=== PATIENT | female | born 1995 | race Caucasian/White ===

== ENCOUNTER 2016-03-28 13:52 | Emergency (ER) | payer SELFPAY ==
[2016-03-28] MEDS ORDERED: ACETAMINOPHEN 325 MG TABLET PO ONE (13:56)
[2016-03-28] MEDS ORDERED: ONDANSETRON 4 MG TAB.RAPDIS PO ONE (13:56)
--- NOTE | 2016-03-28 13:56 | ER Document Report ---
ED Medical Screen (RME) - General Stated Complaint: HEAD INJURY Mode of Arrival: Ambulatory Information source: Patient Notes: He should states she was trying to avoid hitting her head on something and instead hit her head on a cooler door. Patient complains of nausea. No loss of consciousness. Patient complains of increased fatigue hx: Dyslipidemia I have greeted and performed a rapid initial assessment of this patient. A comprehensive ED assessment and evaluation of the patient, analysis of test results and completion of the medical decision making process will be conducted by additional ED providers. TRAVEL OUTSIDE OF THE [place] IN LAST 30 DAYS: No - Related Data Allergies/Adverse Reactions: amoxicillin [Amoxicillin] Allergy (Verified 11/21/13 11:32) amoxicillin trihydrate [From Augmentin] Allergy (Verified 11/21/13 11:32) cefaclor [From Ceclor] Allergy (Verified 11/21/13 11:32) Penicillins Allergy (Verified 11/21/13 11:32) Potassium Clavulanate * [From Augmentin] Allergy (Verified 11/21/13 11:32) Past Medical History Renal/ Medical History: Reports: Hx Kidney Stones Past Surgical History: Reports: Hx Myringotomy - Immunizations Immunizations up to date: Yes Hx Diphtheria, Pertussis, Tetanus Vaccination: Yes Physical Exam - Neurological Neuro grossly intact: Yes Orientation: AAOx4 [place] Coma Scale Eye Opening: Spontaneous [place] Coma Scale Verbal: Oriented [place] Coma Scale Motor: Obeys Commands [place] Coma Scale Total: 15
--- NOTE | 2016-03-28 14:56 | ER Document Report ---
ED Head/Face/Scalp Injury - General Chief Complaint: Head Injury without LOC Stated Complaint: HEAD INJURY Time seen by provider: 14:40 Mode of Arrival: Ambulatory Information source: Patient, [facility] Records Notes: This 21-year-old female patient comes emergency room on the insistence of her employer for evaluation of a head injury suffered about 12:30 PM today. 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 She reports she was dodging some ice buckets when she struck her right forehead on metal door that was open. She is not sure if she hit the edge of the door or the flat portion of the door. She was not down but was not unconscious. She complains of trouble staying awake, nauseousness and fatigue. She does have a throbbing right frontal headache. TRAVEL OUTSIDE OF THE [place] IN LAST 30 DAYS: No - Related Data Allergies/Adverse Reactions: amoxicillin [Amoxicillin] Allergy (Verified 03/28/16 13:55) amoxicillin trihydrate [From Augmentin] Allergy (Verified 03/28/16 13:55) cefaclor [From Ceclor] Allergy (Verified 03/28/16 13:55) Penicillins Allergy (Verified 03/28/16 13:55) Potassium Clavulanate * [From Augmentin] Allergy (Verified 03/28/16 13:55) Past Medical History - General Information source: Patient, [facility] Records - Social History Smoking Status: Current Every Day Smoker Cigarette use (# per day): Yes Chew tobacco use (# tins/day): No Smoking Education Provided: No Frequency of alcohol use: Occasional Drug Abuse: None Occupation: fire apparatus engineer Lives with: Family Family History: Arthritis, DM, Hyperlipidemia, Hypertension, Malignancy Patient has suicidal ideation: No Patient has homicidal ideation: No - Past Medical History Cardiac Medical History: Reports: Hx Hypercholesterolemia - No treatment, has not been checked recently. Was elevated in the past. Pulmonary Medical History: Reports: None EENT Medical History: Reports: None Neurological Medical History: Reports: None Endocrine Medical History: Reports: None Renal/ Medical History: Reports: Hx Kidney Stones GI Medical History: Reports: None Musculoskeltal Medical History: Reports None Skin Medical History: Reports None Psychiatric Medical History: Reports: None Past Surgical History: Reports: Hx Myringotomy - Immunizations Immunizations up to date: Yes Hx Diphtheria, Pertussis, Tetanus Vaccination: Yes Review of Systems - Review of Systems Constitutional: See HPI EENT: See HPI Cardiovascular: No symptoms reported Respiratory: No symptoms reported Gastrointestinal: No symptoms reported Genitourinary: No symptoms reported Female Genitourinary: See HPI - 03/23/2016 Musculoskeletal: No symptoms reported Skin: No symptoms reported Hematologic/Lymphatic: No symptoms reported Neurological/Psychological: No symptoms reported Physical Exam - Vital signs Vitals: Temp Pulse Resp BP Pulse Ox 98.0 F 101 H 16 144/100 H 100 03/28/16 13:55 03/28/16 13:55 03/28/16 13:55 03/28/16 13:55 03/28/16 13:55 Interpretation: Normal - HEENT Head: Normocephalic, Ecchymosis - Right forehead has a tender swollen ecchymotic region about 3 x 4 cm Eyes: Normal Pupils: PERRL Neck: Normal - Respiratory Respiratory status: No respiratory distress - Cardiovascular Rhythm: Regular - Abdominal Inspection: Normal - Back Back: Normal - Extremities General upper extremity: Normal inspection General lower extremity: Normal inspection - Neurological Neuro grossly intact: Yes - Psychological Associated symptoms: Normal affect, Normal mood - Skin Skin Temperature: Warm Skin Moisture: Dry Skin Color: Normal Course - Vital Signs Vital signs: Temp Pulse Resp BP Pulse Ox 98.0 F 101 H 16 144/100 H 100 03/28/16 13:55 03/28/16 13:55 03/28/16 13:55 03/28/16 13:55 03/28/16 13:55 - Diagnostic Test Radiology reviewed: Image reviewed, Reports reviewed - CT scan of the head is unremarkable. Discharge - Discharge Clinical Impression: Contusion of forehead Qualifiers: Encounter type: initial encounter Qualified Code(s): S00.83XA - Contusion of other part of head, initial encounter Condition: Stable Disposition: HOME, SELF-CARE Additional Instructions: Contusion: Your injury has resulted in a contusion -- a crushing of the deep tissues. No injury to important structures was detected during the physician's exam. Contusions vary in the amount of pain they cause, and in the length of time required for healing. Typically, the area will become bruised, and will remain painful to touch for two or three weeks. However, most patients are back to working and playing within a few days. After the initial period of rest and cold-packs, your symptoms (together with the doctor's recommendations) will determine how rapidly you can get back to full activity. Usually this means "do what feels okay, but don't do things that hurt." If re-examination was recommended, it's important to follow up as instructed. Call the doctor or return any time if pain increases, if swelling becomes severe, if you develop numbness or weakness in an injured extremity, or if any other alarming symptoms occur. Head Injury Precautions: At this point, there is no evidence that your head injury is serious. Observation is necessary, however. Take only clear liquids for the first few hours, unless told otherwise by the doctor. If no pain medication was prescribed, you may take acetaminophen according to the directions on the bottle. Do not take any medication that may alter your level of alertness (unless you've discussed it with the doctor first) . Limit activity for the first 24 hours. Bed rest is best. During the first 24 hours, check to see approximately every two to three hours that the patient is easily arousable, responds normally, and can perform common tasks such as walking without difficulty. Contact your doctor or go to the hospital if any of the following things occur: Persistent vomiting, difficulty in arousing the patient, worsening or continued headache, or failure to improve as expected. Head injuries can cause symptoms that persist for a few days or even a few weeks. USE ICE-PACKS TODAY TO REDUCE SWELLING. TAKE THE PAIN MEDICATION DISPENSED IF NEEDED. REST TODAY. FOLLOW UP WITH A LOCAL MEDICAL DOCTOR IF NOT IMPROVING. RETURN TO THE EMERGENCY ROOM IF ANY NEW OR WORSENING SYMPTOMS. Forms: Return to Work
[2016-03-28] MEDS ORDERED: HYDROCODONE/ACETAMINOPHEN 5-325 MG 6 TAB/DSPK PO PRN (15:48)
[2016-03-28 16:20] VITALS: BP 120/56
== END 2016-03-28 16:18 | disposition home or self-care (01) ==
LOC: ER 13:52
DX: S00.83XA Contusion of other part of head, initial encounter (principal); F17.210 Nicotine dependence, cigarettes, uncomplicated; W22.09XA Striking against other stationary object, initial encounter; Y92.511 Restaurant or cafe as the place of occurrence of the external cause; Y99.0 Civilian activity done for income or pay; Z88.0 Allergy status to penicillin; Z87.442 Personal history of urinary calculi
CPT/HCPCS: 99283; 70450; S0119

== ENCOUNTER 2018-03-08 19:54 | Emergency (ER) | payer MEDICAID ==
--- NOTE | 2018-03-08 20:38 | ER Document Report ---
ED Medical Screen (RME) - General Chief Complaint: Flank Pain Stated Complaint: FLANK PAIN Time Seen by Provider: 03/08/18 20:35 TRAVEL OUTSIDE OF THE [place] IN LAST 30 DAYS: No - HPI Patient complains to provider of: Right flank pain, fever Onset: This afternoon Notes: 03/08/18 20:37 Patient is a 23-year-old female who is approximately 21 weeks , presenting to the emergency room complaining of right-sided flank pain that started earlier this afternoon, she had a fever at home but is noted to be afebrile in the triage area, she denies any fluid leakage, no vaginal bleeding, no discharge, she is been followed by [employer] and has had an full thus far RAPID MEDICAL EVALUATION DISCLOSURE I have seen this patient as part of a Rapid Medical Evaluation and, if applicable, placed any initially appropriate orders. The patient will be seen and fully evaluated, including a full history and physical exam, by a provider (in Main ED or Fast Track) when a room becomes available. - Related Data Allergies/Adverse Reactions: amoxicillin [Amoxicillin] Allergy (Verified 03/08/18 20:28) amoxicillin trihydrate [From Augmentin] Allergy (Verified 03/08/18 20:28) cefaclor [From Ceclor] Allergy (Verified 03/08/18 20:28) Penicillins Allergy (Verified 03/08/18 20:28) Potassium Clavulanate * [From Augmentin] Allergy (Verified 03/08/18 20:28) Past Medical History - Past Medical History Cardiac Medical History: Reports: Hx Hypercholesterolemia - No treatment, has not been checked recently. Was elevated in the past. Renal/ Medical History: Reports: Hx Kidney Stones. Denies: Hx Peritoneal Dialysis Past Surgical History: Reports: Hx Myringotomy - Immunizations Immunizations up to date: Yes Hx Diphtheria, Pertussis, Tetanus Vaccination: Yes Physical Exam - Vital signs Vitals: Temp Pulse Resp BP Pulse Ox 98.5 F 117 H 18 135/66 H 100 03/08/18 20:17 03/08/18 20:17 03/08/18 20:17 03/08/18 20:17 03/08/18 20:17 Course - Vital Signs Vital signs: Temp Pulse Resp BP Pulse Ox 98.5 F 117 H 18 135/66 H 100 03/08/18 20:17 03/08/18 20:17 03/08/18 20:17 03/08/18 20:17 03/08/18 20:17
[2018-03-08 21:24] LABS: ABSOLUTE EOSINOPHILS # (AUTO) 0.1 10^3/uL (0.0-0.6); ABSOLUTE LYMPHOCYTES (AUTO) 1.1 10^3/uL (0.5-4.7); ABSOLUTE MONOCYTES (AUTO) 0.9 10^3/uL (0.1-1.4); BASOPHILS % (AUTO) 0.2 % (0-2); HEMATOCRIT 29.5 % (36.0-47.0); HEMOGLOBIN 10.1 g/dL (12.0-15.5); LYMPHOCYTES % (AUTO) 8.1 % (13-45); MEAN CORPUSCULAR HEMOGLOBIN 31.1 pg (27.0-33.4); MEAN CORPUSCULAR HGB CONC 34.2 g/dL (32.0-36.0); MEAN CORPUSCULAR VOLUME 91 fl (80-97); MONOCYTES % (AUTO) 7.1 % (3-13); PLATELET COUNT 353 10^3/uL (150-450); RED BLOOD COUNT 3.24 10^6/uL (3.72-5.28); RED CELL DISTRIBUTION WIDTH 13.5 % (11.5-14.0); SEGMENTED NEUTROPHILS % (AUTO) 83.6 % (42-78); TOTAL CELLS COUNTED % (AUTO) 100 %; WHITE BLOOD COUNT 13.1 10^3/uL (4.0-10.5)
[2018-03-08 21:26] LABS: APPEARANCE,URINE SLIGHTLY-CLOUDY; BILIRUBIN,URINE NEGATIVE (NEGATIVE); COLOR,URINE YELLOW; GLUCOSE, URINE NEGATIVE (NEGATIVE); KETONES,URINE NEGATIVE (NEGATIVE); LEUKOCYTE ESTERASE,URINE NEGATIVE (NEGATIVE); NITRITE,URINE NEGATIVE (NEGATIVE); PROTEIN,URINE NEGATIVE (NEGATIVE); URINE SPECIFIC GRAVITY 1.017; UROBILINOGEN,URINE NEGATIVE mg/dL (<2.0)
[2018-03-08 21:40] LABS: ALANINE AMINOTRANSFERASE 26 U/L (9-52); ALBUMIN 3.6 g/dL (3.5-5.0); ALKALINE PHOSPHATASE 83 U/L (38-126); ANION GAP 10 (5-19); ASPARTATE AMINO TRANSFERASE 28 U/L (14-36); BILIRUBIN,DIRECT 0.2 mg/dL (0.0-0.4); BILIRUBIN,TOTAL 0.2 mg/dL (0.2-1.3); BLOOD UREA NITROGEN 8 mg/dL (7-20); CALCIUM 8.9 mg/dL (8.4-10.2); CARBON DIOXIDE 26 mmol/L (22-30); CHLORIDE 102 mmol/L (98-107); GLUCOSE 80 mg/dL (75-110); LIPASE 81.4 U/L (23-300); POTASSIUM 3.7 mmol/L (3.6-5.0); SODIUM 137.7 mmol/L (137-145); TOTAL PROTEIN 6.5 g/dL (6.3-8.2)
--- NOTE | 2018-03-08 22:13 | ER Document Report ---
ED GI/ - General Chief Complaint: Flank Pain Stated Complaint: FLANK PAIN Time Seen by Provider: 03/08/18 22:13 Mode of Arrival: Ambulatory Information source: Patient Notes: HISTORY OF PRESENT ILLNESS: Patient is a 23-year-old female, at 21 weeks, with no significant past medical history who presents with right-sided flank pain. Location: Right flank Onset: Suddenly earlier today Alleviation: None Provocation: Movement, twisting Quality: Aching Radiation: Right lower back Severity: Mild to moderate Timing: Intermittent History of abdominal surgery: No Associated symptoms: Slight nausea but no vomiting, denies vaginal bleeding or discharge Last bowel movement: Today and normal Last menstrual period: Currently 21 weeks REVIEW OF SYSTEMS: CONSTITUTIONAL : Denies fever or chills, no sweats. Denies recent illness. EENT: Denies eye, ear, throat, or mouth pain or symptoms. Denies nasal or sinus congestion. CARDIOVASCULAR: Denies chest pain. Denies swelling of the legs. RESPIRATORY: Denies cough, cold, or chest congestion. Denies shortness of breath or difficulty breathing. Denies wheezing. GASTROINTESTINAL: Positive for flank pain. Positive for nausea but denies vomiting or diarrhea. Denies constipation. GENITOURINARY: Denies difficulty urinating, painful urination, burning, frequency, or blood in urine. FEMALE GENITOURINARY: Denies vaginal bleeding or discharge. MUSCULOSKELETAL: Denies neck or back pain or joint pain or swelling. SKIN: Denies rash or skin lesions. HEMATOLOGIC : Denies easy bruising or bleeding. LYMPHATIC: Denies swollen, enlarged glands. NEUROLOGICAL: Denies altered mental status or loss of consciousness. Denies headache. Denies weakness or paralysis or loss of use of either side. Denies problems with gait or speech. Denies sensory or motor loss. PSYCHIATRIC: Denies anxiety or stress or depression. All other systems reviewed and negative. PHYSICAL EXAMINATION: GENERAL: Well-appearing, well-nourished and in no acute distress. HEAD: Atraumatic, normocephalic. No scalp deformity, depression, or crepitance. EYES: Pupils are 3 mm and equal/round/reactive to light, extraocular movements intact, sclera anicteric, conjunctiva are normal. ENT: Nares patent bilaterally, oropharynx. Moist mucous membranes. No tonsil hypertrophy. NECK: Normal range of motion, supple without lymphadenopathy. LUNGS: Breath sounds present, equal, and clear to auscultation bilaterally. No wheezes, rales, or rhonchi. HEART: Regular rate and rhythm without murmurs, rubs, or gallops. 2+ peripheral pulses. Normal capillary refill. ABDOMEN: Gravid abdomen that is soft and nontender, no distention. No CVA tenderness. Normoactive bowel sounds. No guarding, no rebound. No masses appreciated. BACK: Normal contour, no midline tenderness. Rectal exam deferred. GENITAL/PELVIC: Deferred. EXTREMITIES: Normal range of motion, no pitting or edema. No cyanosis. NEUROLOGICAL: No focal neurological deficits. Moves all extremities spontaneously and on command. PSYCH: Normal mood, normal affect. No suicidal thoughts/ideations. No homocidal thoughts/ideations. No hallucinations. SKIN: Warm, dry, normal turgor, no rashes or lesions noted. ASSESSMENT AND PLAN: This patient is a 23-year-old female at 21 weeks who presents with right flank pain. Patient has never had symptoms before like this. Urine and blood work are normal making pyelonephritis, UTI, and ureteral stone unlikely. Most likely etiology is round ligament pain given patient is a primigravid female. 1. Will discharge home with return precautions and follow-up with her [employer] as scheduled. 2. Both the patient and her fianc at bedside voiced understanding and agreeing with the plan. TRAVEL OUTSIDE OF THE [place] IN LAST 30 DAYS: No - Related Data Allergies/Adverse Reactions: amoxicillin [Amoxicillin] Allergy (Verified 03/08/18 20:28) amoxicillin trihydrate [From Augmentin] Allergy (Verified 03/08/18 20:28) cefaclor [From Ceclor] Allergy (Verified 03/08/18 20:28) Penicillins Allergy (Verified 03/08/18 20:28) Potassium Clavulanate * [From Augmentin] Allergy (Verified 03/08/18 20:28) Past Medical History - General Information source: Patient - Social History Smoking Status: Former Smoker Chew tobacco use (# tins/day): No Frequency of alcohol use: None Drug Abuse: None Lives with: Family Family History: Arthritis, DM, Hyperlipidemia, Hypertension, Malignancy Patient has suicidal ideation: No Patient has homicidal ideation: No - Past Medical History Cardiac Medical History: Reports: Hx Hypercholesterolemia - No treatment, has not been checked recently. Was elevated in the past. Pulmonary Medical History: Reports: None EENT Medical History: Reports: None Neurological Medical History: Reports: None Endocrine Medical History: Reports: None Renal/ Medical History: Reports: Hx Kidney Stones. Denies: Hx Peritoneal Dialysis GI Medical History: Reports: None Musculoskeletal Medical History: Reports None Skin Medical History: Reports None Psychiatric Medical History: Reports: None Traumatic Medical History: Reports: None Infectious Medical History: Reports: None Surgical Hx: Negative Past Surgical History: Reports: Hx Myringotomy - Immunizations Immunizations up to date: Yes Hx Diphtheria, Pertussis, Tetanus Vaccination: Yes Physical Exam - Vital signs Vitals: Temp Pulse Resp BP Pulse Ox 98.5 F 117 H 18 135/66 H 100 03/08/18 20:17 03/08/18 20:17 03/08/18 20:17 03/08/18 20:17 03/08/18 20:17 Course - Vital Signs Vital signs: Temp Pulse Resp BP Pulse Ox 98.5 F 117 H 18 135/66 H 100 03/08/18 20:17 03/08/18 20:17 03/08/18 20:17 03/08/18 20:17 03/08/18 20:17 - Laboratory Result Diagrams: 03/08/18 20:45 03/08/18 20:45 Laboratory results interpreted by me: 03/08/18 03/08/18 03/08/18 20:45 20:45 20:45 WBC 13.1 H RBC 3.24 L Hgb 10.1 L Hct 29.5 L Seg Neutrophils % 83.6 H Lymphocytes % 8.1 L Absolute Neutrophils 11.0 H Creatinine 0.49 L Urine HCG, Qual POSITIVE H Discharge - Discharge Clinical Impression: Abdominal pain affecting Condition: Good Disposition: HOME, SELF-CARE Instructions: Pelvic Pain in and Round Ligament Pain ([facility]) Additional Instructions: You have been evaluated in the Emergency Department for back and lower right pelvic pain that is most likely related to stretching of the uterus during . Please follow-up with your [employer] as instructed. Return to the Emergency Department if you experience worsening pain, vaginal bleeding/discharge, or any other concerning symptoms. Forms: Parent Work Note, Return to Work Print Language: Citizen Of [place]
[2018-03-08 23:48] VITALS: BP 127/71
== END 2018-03-08 23:53 | disposition home or self-care (01) ==
LOC: ER 19:54
DX: O26.892 Other specified pregnancy related conditions, second trimester (principal); R10.9 Unspecified abdominal pain; R11.0 Nausea; Z3A.21 21 weeks gestation of pregnancy; Z87.891 Personal history of nicotine dependence
CPT/HCPCS: 36415; 80053; 81001; 81025; 83690; 85025; 87086; 99284

== ENCOUNTER 2018-05-04 20:02 | Outpatient (CLI) | payer MEDICAID ==
[2018-05-04 20:52] LABS: APPEARANCE,URINE SLIGHTLY-CLOUDY; BILIRUBIN,URINE NEGATIVE (NEGATIVE); COLOR,URINE YELLOW; GLUCOSE, URINE NEGATIVE (NEGATIVE); KETONES,URINE NEGATIVE (NEGATIVE); LEUKOCYTE ESTERASE,URINE TRACE (NEGATIVE); NITRITE,URINE NEGATIVE (NEGATIVE); PROTEIN,URINE 30 mg/dL (NEGATIVE); URINE SPECIFIC GRAVITY 1.015; UROBILINOGEN,URINE NEGATIVE mg/dL (<2.0)
[2018-05-04 21:07] LABS: URINE AMPHETAMINES SCREEN NEGATIVE; URINE BARBITURATES SCREEN NEGATIVE; URINE BENZODIAZEPINES SCREEN NEGATIVE; URINE COCAINE SCREEN NEGATIVE; URINE MARIJUANA (THC) SCREEN NEGATIVE; URINE METHADONE SCREEN NEGATIVE; URINE PHENCYCLIDINE SCREEN NEGATIVE
[2018-05-04] MEDS ORDERED: HYDROXYZINE PAMOATE 25 MG CAPSULE PO ONE (21:10)
[2018-05-04] MEDS ORDERED: HYDROXYZINE PAMOATE 50 MG CAPSULE ONE (21:10)
[2018-05-04] MEDS ORDERED: RINGERS SOLUTION,LACTATED 1,000 ML IV PRN (21:14)
[2018-05-04] MEDS ORDERED: HYDROXYZINE PAMOATE 50 MG CAPSULE PO ONE (21:16)
--- NOTE | 2018-05-05 01:09 | RADIOLOGY REPORT (SQ) ---
EXAM DESCRIPTION: US LIMITED COMPLETED DATE/TME: 05/04/2018 00:00 CLINICAL HISTORY: 23 years, Female, Cervical length COMPARISON: None. TECHNIQUE: LIMITATIONS: None. FINDINGS: A limited ultrasound was performed to evaluate the cervical length. The cervix measures 3.2 cm in length and is closed. There is a live IUP in vertex presentation. cardiac activity was measured at 145 bpm. There is dilatation of the lateral ventricles, one measuring 20 mm in diameter and the other measuring 18 mm in diameter. The skull may be somewhat lemon shaped, a finding that can be seen with a Chiari II malformation, as well as other conditions. There may also be a nuchal umbilical cord. There is a normal amount of amniotic fluid. The placenta is posterior in location, with no evidence of abruption or previa. IMPRESSION: Findings raising the possibility of a Chiari II malformation. Possible nuchal umbilical cord. copyright 2010 [facility]- All Rights Reserved
== END 2018-05-05 01:07 | disposition home or self-care (01) ==
LOC: LC 20:02
PROVIDERS: ATTEND Obstetrics & Gynecology
PROC: 4A1HXCZ Monitoring of Products of Conception, Cardiac Rate, External Approach (ICD-10-PCS; principal; 2018-05-04)
DX: O47.03 False labor before 37 completed weeks of gestation, third trimester (principal); Z3A.29 29 weeks gestation of pregnancy
CPT/HCPCS: 81001; 80307; 76815; 59899; J3490

== ENCOUNTER 2018-05-06 14:57 | Outpatient (CLI) | payer MEDICAID | END 2018-05-06 16:15 | disposition home or self-care (01) | LOC: LC 14:57 | PROVIDERS: ATTEND Obstetrics & Gynecology | PROC: 4A1HXCZ Monitoring of Products of Conception, Cardiac Rate, External Approach (ICD-10-PCS; principal; 2018-05-06) | DX: O36.8330 Maternal care for abnormalities of the fetal heart rate or rhythm, third trimester, not applicable or unspecified (principal); Z3A.30 30 weeks gestation of pregnancy | CPT/HCPCS: 59025 ==

== ENCOUNTER 2018-05-23 13:07 | Outpatient (CLI) | payer MEDICAID ==
[2018-05-23 13:37] LABS: APPEARANCE,URINE CLOUDY; BILIRUBIN,URINE NEGATIVE (NEGATIVE); COLOR,URINE YELLOW; GLUCOSE, URINE NEGATIVE (NEGATIVE); KETONES,URINE NEGATIVE (NEGATIVE); LEUKOCYTE ESTERASE,URINE SMALL (NEGATIVE); NITRITE,URINE NEGATIVE (NEGATIVE); PROTEIN,URINE NEGATIVE (NEGATIVE); URINE SPECIFIC GRAVITY 1.018; UROBILINOGEN,URINE NEGATIVE mg/dL (<2.0)
[2018-05-23 13:50] LABS: URINE AMPHETAMINES SCREEN NEGATIVE; URINE BARBITURATES SCREEN NEGATIVE; URINE BENZODIAZEPINES SCREEN NEGATIVE; URINE COCAINE SCREEN NEGATIVE; URINE MARIJUANA (THC) SCREEN NEGATIVE; URINE METHADONE SCREEN NEGATIVE; URINE PHENCYCLIDINE SCREEN NEGATIVE
[2018-05-23 13:54] LABS: UR PRO/CREAT RATIO RESULT 0.2 mg/mg (0.0-0.2); URINE CREATININE 85.3 mg/dL (16-327); URINE PROTEIN 19.7 mg/dL (<12)
[2018-05-23 13:54] LABS: ABSOLUTE EOSINOPHILS # (AUTO) 0.2 10^3/uL (0.0-0.6); ABSOLUTE LYMPHOCYTES (AUTO) 2.2 10^3/uL (0.5-4.7); ABSOLUTE MONOCYTES (AUTO) 1.1 10^3/uL (0.1-1.4); ABSOLUTE NEUT (AUTO) 11.7 10^3/uL (1.7-8.2); BASOPHILS % (AUTO) 0.3 % (0-2); EOSINOPHILS % (AUTO) 1.2 % (0-6); HEMATOCRIT 28.3 % (36.0-47.0); HEMOGLOBIN 9.5 g/dL (12.0-15.5); LYMPHOCYTES % (AUTO) 14.6 % (13-45); MEAN CORPUSCULAR HGB CONC 33.7 g/dL (32.0-36.0); MEAN CORPUSCULAR VOLUME 86 fl (80-97); PLATELET COUNT 366 10^3/uL (150-450); RED BLOOD COUNT 3.29 10^6/uL (3.72-5.28); RED CELL DISTRIBUTION WIDTH 14.1 % (11.5-14.0); SEGMENTED NEUTROPHILS % (AUTO) 76.9 % (42-78); TOTAL CELLS COUNTED % (AUTO) 100 %; WHITE BLOOD COUNT 15.2 10^3/uL (4.0-10.5)
[2018-05-23 14:10] LABS: ALANINE AMINOTRANSFERASE 26 U/L (9-52); ALBUMIN 3.1 g/dL (3.5-5.0); ALKALINE PHOSPHATASE 147 U/L (38-126); ANION GAP 8 (5-19); ASPARTATE AMINO TRANSFERASE 18 U/L (14-36); BILIRUBIN,DIRECT 0.2 mg/dL (0.0-0.4); BILIRUBIN,TOTAL 0.2 mg/dL (0.2-1.3); BLOOD UREA NITROGEN 10 mg/dL (7-20); CALCIUM 9.3 mg/dL (8.4-10.2); CARBON DIOXIDE 19 mmol/L (22-30); CHLORIDE 108 mmol/L (98-107); GLUCOSE 92 mg/dL (75-110); POTASSIUM 4.3 mmol/L (3.6-5.0); SODIUM 135.1 mmol/L (137-145); TOTAL PROTEIN 6.4 g/dL (6.3-8.2); URIC ACID 3.4 mg/dL (2.5-6.2)
--- NOTE | 2018-05-23 14:19 | Non Stress Test Report ---
Non Stress Test Datetime Report Generated by CPN: 05/23/2018 14:19 DEMOGRAPHIC Test Number: 1 EGA NST: 32.4 EGA NST: 30.1 INDICATION Indication for Study: Ordered by Provider Indication for Study: Ordered by Provider Indication for Study (NST) Other: fall this am VITAL SIGNS Temperature - NST: 97.1 Pulse - NST: 106 RESP - NST: 18 NBPSYS NST: 114 NBPDIA NST: 56 MONITORING Monitor Explained: Monitor Explained; Test Explained; Patient Verbalized Understanding Monitor Explained: Monitor Explained; Test Explained; Patient Verbalized Understanding Time on Monitor: 05/23/2018 13:40 Time on Monitor: 05/06/2018 15:09 Time off Monitor: 05/23/2018 14:16 Time off Monitor: 05/06/2018 16:10 NST Duration: 36 NST Duration: 61 NST INTERVENTIONS NST Interventions: PO Hydration; Reposition Patient NST Interventions: PO Hydration Physician Notified NST: N Alexander GONSALES Physician Notified NST: Reviewed by Olga Munoz CNM BABY A: [id number] BABY A Movement : Present Movement : Present Contraction Frequency : intermittent Contraction Frequency : 0 FHR Baseline : 150 FHR Baseline : 150 Accelerations : 15X15 Accelerations : 10X10 Decelerations : None Decelerations : None Variability : Moderate 6-25bpm Variability : Minimal - Undetectable to <=5bpm NST Review: Meets Criteria for Reactive NST NST Review: appropriate for gest age NST Review and Verified By : CARLOS Lozoya NST Review and Verified By : CARLOS VÁZQUEZT Results: Reactive NST COMMENTS NST Comments: kick count instructios given to patient. Coices understanding NST REPORT Report Trigger: Send Report
[2018-05-24 15:44] LABS: URINE PROTEIN 19.8 mg/dL (<12)
[2018-05-24 15:49] LABS: 24 HOUR URINE PROTEIN RESULT 515 mg/day (42-225)
== END 2018-05-23 14:27 | disposition home or self-care (01) ==
LOC: LC 13:07
PROVIDERS: ATTEND Obstetrics & Gynecology Gynecology
PROC: 4A1HXCZ Monitoring of Products of Conception, Cardiac Rate, External Approach (ICD-10-PCS; principal; 2018-05-23)
DX: O14.93 Unspecified pre-eclampsia, third trimester (principal); Z3A.32 32 weeks gestation of pregnancy
CPT/HCPCS: 36415; 59025; 80053; 80307; 81001; 82570; 84156; 84550; 85025; 87086

== ENCOUNTER 2018-05-27 11:15 | Outpatient (CLI) | payer MEDICAID ==
[2018-05-27 11:59] LABS: APPEARANCE,URINE SLIGHTLY-CLOUDY; BILIRUBIN,URINE NEGATIVE (NEGATIVE); COLOR,URINE YELLOW; GLUCOSE, URINE NEGATIVE (NEGATIVE); KETONES,URINE NEGATIVE (NEGATIVE); LEUKOCYTE ESTERASE,URINE SMALL (NEGATIVE); NITRITE,URINE NEGATIVE (NEGATIVE); PROTEIN,URINE 30 mg/dL (NEGATIVE); URINE SPECIFIC GRAVITY 1.014; UROBILINOGEN,URINE NEGATIVE mg/dL (<2.0)
[2018-05-27 12:13] LABS: URINE AMPHETAMINES SCREEN NEGATIVE; URINE BARBITURATES SCREEN NEGATIVE; URINE BENZODIAZEPINES SCREEN NEGATIVE; URINE COCAINE SCREEN NEGATIVE; URINE MARIJUANA (THC) SCREEN NEGATIVE; URINE METHADONE SCREEN NEGATIVE; URINE PHENCYCLIDINE SCREEN NEGATIVE
--- NOTE | 2018-05-27 13:54 | Non Stress Test Report ---
Non Stress Test Datetime Report Generated by CPN: 05/27/2018 13:54 DEMOGRAPHIC EGA NST: 33.1 INDICATION Indication for Study: Ordered by Provider Indication for Study (NST) Other: labor check MONITORING Monitor Explained: Monitor Explained; Test Explained; Patient Verbalized Understanding Time on Monitor: 05/27/2018 12:40 Time off Monitor: 05/27/2018 13:11 NST Duration: 31 NST INTERVENTIONS NST Interventions: PO Hydration; Reposition Patient Physician Notified NST: Dr Manzano BABY A: [id number] BABY A Movement : Present Contraction Frequency : 6-7 FHR Baseline : 140 FHR Baseline : 140 Accelerations : 15X15 Decelerations : None Variability : Moderate 6-25bpm NST Review: Meets Criteria for Reactive NST NST Review and Verified By : CARLOS Lozoya Results: Reactive NST REPORT Report Trigger: Send Report
== END 2018-05-27 13:30 | disposition home or self-care (01) ==
LOC: LC 11:15
PROVIDERS: ATTEND Obstetrics & Gynecology Gynecology
PROC: 4A1HXCZ Monitoring of Products of Conception, Cardiac Rate, External Approach (ICD-10-PCS; principal; 2018-05-27)
DX: O26.899 Other specified pregnancy related conditions, unspecified trimester (principal); Z3A.33 33 weeks gestation of pregnancy
CPT/HCPCS: 59025; 80307; 81001

== ENCOUNTER 2018-05-30 13:17 | Outpatient (CLI) | payer MEDICAID ==
[2018-05-30 13:50] LABS: APPEARANCE,URINE SLIGHTLY-CLOUDY; BILIRUBIN,URINE NEGATIVE (NEGATIVE); COLOR,URINE YELLOW; GLUCOSE, URINE NEGATIVE (NEGATIVE); KETONES,URINE NEGATIVE (NEGATIVE); LEUKOCYTE ESTERASE,URINE NEGATIVE (NEGATIVE); NITRITE,URINE NEGATIVE (NEGATIVE); PROTEIN,URINE NEGATIVE (NEGATIVE); URINE SPECIFIC GRAVITY 1.016; UROBILINOGEN,URINE NEGATIVE mg/dL (<2.0)
[2018-05-30 14:10] LABS: URINE AMPHETAMINES SCREEN NEGATIVE; URINE BARBITURATES SCREEN NEGATIVE; URINE BENZODIAZEPINES SCREEN NEGATIVE; URINE COCAINE SCREEN NEGATIVE; URINE MARIJUANA (THC) SCREEN NEGATIVE; URINE METHADONE SCREEN NEGATIVE; URINE PHENCYCLIDINE SCREEN NEGATIVE
== END 2018-05-30 14:24 | disposition home or self-care (01) ==
LOC: LC 13:17
PROVIDERS: ATTEND Obstetrics & Gynecology
PROC: 4A1HXCZ Monitoring of Products of Conception, Cardiac Rate, External Approach (ICD-10-PCS; principal; 2018-05-30)
DX: Z34.93 Encounter for supervision of normal pregnancy, unspecified, third trimester (principal)
CPT/HCPCS: 80307; 81001

== ENCOUNTER 2018-06-09 14:08 | Outpatient (CLI) | payer MEDICAID ==
--- NOTE | 2018-06-09 14:47 | Non Stress Test Report ---
Non Stress Test Datetime Report Generated by CPN: 06/09/2018 14:47 DEMOGRAPHIC EGA NST: 35.0 INDICATION Indication for Study: Ordered by Provider; Other Indication for Study (NST) Other: repeat nst from office MONITORING Monitor Explained: Monitor Explained; Test Explained; Patient Verbalized Understanding Time on Monitor: 06/09/2018 14:18 Time off Monitor: 06/09/2018 14:41 NST Duration: 23 NST INTERVENTIONS NST Interventions: PO Hydration Physician Notified NST: NEmeryMunoz, CNM BABY A: [id number] BABY A Movement : Present Contraction Frequency : 0 FHR Baseline : 140 Accelerations : 15X15 Decelerations : None Variability : Moderate 6-25bpm NST Review: Meets Criteria for Reactive NST NST Review and Verified By : CARLOS Lozoya Results: Reactive NST REPORT Report Trigger: Send Report
== END 2018-06-09 14:43 | disposition home or self-care (01) ==
LOC: LC 14:08
PROVIDERS: ATTEND Student in an Organized Health Care Education/Training Program
DX: O36.8390 Maternal care for abnormalities of the fetal heart rate or rhythm, unspecified trimester, not applicable or unspecified (principal); Z3A.35 35 weeks gestation of pregnancy
CPT/HCPCS: 59025

== ENCOUNTER → 2018-06-13 | Outpatient (CLI) | payer MEDICAID ==
[2018-06-13 13:13] LABS: ABSOLUTE BASOPHILS # (AUTO) 0.1 10^3/uL (0.0-0.2); ABSOLUTE EOSINOPHILS # (AUTO) 0.1 10^3/uL (0.0-0.6); ABSOLUTE LYMPHOCYTES (AUTO) 1.9 10^3/uL (0.5-4.7); ABSOLUTE MONOCYTES (AUTO) 0.9 10^3/uL (0.1-1.4); ABSOLUTE NEUT (AUTO) 9.6 10^3/uL (1.7-8.2); BASOPHILS % (AUTO) 0.4 % (0-2); HEMATOCRIT 27.9 % (36.0-47.0); HEMOGLOBIN 9.1 g/dL (12.0-15.5); MEAN CORPUSCULAR HEMOGLOBIN 27.2 pg (27.0-33.4); MEAN CORPUSCULAR HGB CONC 32.7 g/dL (32.0-36.0); MEAN CORPUSCULAR VOLUME 83 fl (80-97); MONOCYTES % (AUTO) 7.4 % (3-13); PLATELET COUNT 344 10^3/uL (150-450); RED BLOOD COUNT 3.34 10^6/uL (3.72-5.28); RED CELL DISTRIBUTION WIDTH 15.2 % (11.5-14.0); SEGMENTED NEUTROPHILS % (AUTO) 76.2 % (42-78); TOTAL CELLS COUNTED % (AUTO) 100 %; WHITE BLOOD COUNT 12.6 10^3/uL (4.0-10.5)
[2018-06-13 13:29] LABS: ASPARTATE AMINO TRANSFERASE 19 U/L (14-36); URIC ACID 4.4 mg/dL (2.5-6.2)
== END ==
LOC: OD 12:35
PROVIDERS: ATTEND Registered Nurse Women's Health Care, Ambulatory
DX: O14.90 Unspecified pre-eclampsia, unspecified trimester (principal)
CPT/HCPCS: 36415; 82565; 83615; 84450; 84550; 85025